=== PATIENT | male | born 1995 | race Hispanic/Latino ===

== ENCOUNTER 2023-12-02 07:19 | Day surgery (SDC) | payer BC ==
[2023-11-28 13:12] LABS: BASOPHILS # (AUTO) 0.07 K/uL (0.00-0.20); BASOPHILS % (AUTO) 0.7 % (0.0-5.0); EOSINOPHILS # (AUTO) 0.18 K/uL (0.00-0.70); EOSINOPHILS % (AUTO) 1.8 % (0.0-8.0); HEMATOCRIT 44.8 % (42-54); IMMATURE GRANULOCYTE ABSOLUTE 0.09 K/uL (0-1); LYMPHOCYTES # (AUTO) 2.3 K/uL (1.0-4.8); LYMPHOCYTES % (AUTO) 23.3 % (21.0-51.0); MEAN CORPUSCULAR HEMOGLOBIN 29.9 pg (27.0-33.0); MEAN CORPUSCULAR HGB CONC 35.5 g/dL (32.0-36.0); MEAN CORPUSCULAR VOLUME 84.4 fL (79-99); MONOCYTES # (AUTO) 0.8 K/uL (0.1-1.0); MONOCYTES % (AUTO) 8.5 % (3.0-13.0); NEUTROPHILS # (AUTO) 6.3 K/uL (1.8-7.7); NEUTROPHILS % (AUTO) 64.8 % (40.0-77.0); PLATELET COUNT (AUTO) 284 K/uL (130-400); RED BLOOD CELL COUNT(AUTO) 5.31 MIL/uL (4.50-6.20); RED CELL DISTRIBUTION WIDTH 11.9 % (11.0-15.5); WHITE BLOOD COUNT (AUTO) 9.8 K/uL (4.8-10.8)
[2023-11-28 13:30] LABS: INR <= 0.93 (0.85-1.15); PROTHROMBIN TIME 10.2 SEC (9.6-11.6)
[2023-11-28 13:32] LABS: PARTIAL THROMBOPLASTIN TIME 30.3 SEC (26.3-35.5)
[2023-11-28 13:36] LABS: ALBUMIN 4.1 g/dL (3.5-5.0); BILIRUBIN,TOTAL 0.3 mg/dL (0.2-1.0); POTASSIUM 3.9 mmol/L (3.5-5.1)
[2023-11-28 13:45] VITALS: BP 124/63; PULSE 73; RESP 17
[2023-12-02] VITALS (18 sets, daily range): BP systolic 108–142; BP diastolic 59–88; PULSE 65–95; RESP 13–18
[~2023-12-02] VITALS: Ht 180.3 cm; Wt 129.7 kg
[2023-12-02] MEDS: MEROPENEM 1 GM VIAL ONE (08:28)
[2023-12-02] MEDS: LACTATED RINGERS 1000ML 1,000 ML IV ONE (08:29)
[2023-12-02] MEDS ORDERED: PROPOFOL 10 MG/ML 20ML VIAL IV ONE (08:59)
[2023-12-02] MEDS ORDERED: FENTANYL CITRATE PF 50 MCG/1 ML 2ML VIAL ONE (08:59)
[2023-12-02] MEDS ORDERED: LIDOCAINE PF 100MG/5ML (2%) SYRINGE 5ML ONE (08:59)
[2023-12-02] MEDS ORDERED: MIDAZOLAM HCL 1 MG/ML 2ML VIAL ONE (08:59)
[2023-12-02] MEDS ORDERED: ONDANSETRON 4MG INJ ONE (09:05)
[2023-12-02] MEDS ORDERED: DEXAMETHASONE SOD PHOSPHATE 4 MG/ML 1ML VIAL ONE (09:05)
[2023-12-02] MEDS: LIDOCAINE 1%-EPI 1:100,000 20 ML VIAL ONE (09:40)
[2023-12-02] MEDS: BUPIVACAINE/PF 0.25% 30ML VIAL IJ ONE (09:40)
[2023-12-02] MEDS: ONDANSETRON 4MG INJ ONE ×2 (10:25→10:34)
[2023-12-02] MEDS: METOCLOPRAMIDE 10 MG/2 ML VIAL ONE (10:34)
== END 2023-12-02 11:35 | disposition home or self-care (01) ==
LOC: DAH 07:19
PROVIDERS: ATTEND Surgery
DX: K60.3 Anal fistula (principal); L29.0 Pruritus ani; E66.9 Obesity, unspecified; K21.9 Gastro-esophageal reflux disease without esophagitis; Z79.01 Long term (current) use of anticoagulants; Z79.899 Other long term (current) drug therapy; Z90.49 Acquired absence of other specified parts of digestive tract; Z87.891 Personal history of nicotine dependence; Z98.890 Other specified postprocedural states; Z68.41 Body mass index [BMI] 40.0-44.9, adult
CPT/HCPCS: 93005; 80053; 85025; 85610; 85730; 36415; 46270; A6260; J1100; A4663; J7120 ×2; J3010; J3490; J0665; J2001; J2250; J2704; J2405 ×3; J2765; J2185; A4649; A4930 ×2; A4215; A4223; A4222; A4221